=== PATIENT | female | born 1945 | race Caucasian/White ===

== ENCOUNTER → 2024-02-17 07:29 | Outpatient (REF) | payer OTHER, SELFPAY ==
[2024-02-17 11:43] LABS: Blood Urea Nitrogen 35 mg/dl (7-17); Calcium 10.4 mg/dl (8.4-10.2); Carbon Dioxide 28 mmol/L (22-30); Chloride 102 mmol/L (98-107); Glucose 116 mg/dl (70-99); Potassium 4.4 mmol/L (3.5-5.1); Sodium 142 mmol/L (135-145); eGFR 57.66
== END ==
LOC: RCS 07:29
PROVIDERS: ATTENDING PHYSICIAN Physician Assistant Surgical; FAMILY PHYSICIAN Internal Medicine
DX: Z01.818 Encounter for other preprocedural examination (principal)
CPT/HCPCS: 36415; 80048; 93005